=== PATIENT | female | born 1980 | race Caucasian/White ===

== ENCOUNTER 2016-08-29 14:23 | Emergency (ER) | payer BC ==
--- NOTE | 2016-08-29 14:32 | ER Document Report ---
Addendum entered and electronically signed by URMILA CESAR NP 15:49: Doctor's Note Notes: 08/29/16 15:48 35-year-old female presented to ED for evaluation for depression. States she had a child recently and for the last week she has been depressed. She states she has been having suicidal thoughts stating she could kill herself with a gun that she has at home. Original Note: ED Medical Screen (RME) - General Chief Complaint: Depression Stated Complaint: POSSIBLE DEPRESSION Time seen by provider: 14:31 Mode of Arrival: Ambulatory Information source: Patient Notes: 35-year-old female presents to ED for evaluation for depression. Verbalized results of suicide states like a gun states she has a gun at home. Denies ever having thoughts of suicide before I have greeted and performed a rapid initial assessment of this patient. A comprehensive ED assessment and evaluation of the patient, analysis of test results and completion of medical decision making process will be conducted by an additional ED providers. TRAVEL OUTSIDE OF THE [place] IN LAST 30 DAYS: No - Related Data Allergies/Adverse Reactions: ethinyl estradiol [From Microgestin Fe 1.530 (28)] Allergy (Verified 07/28/16 04:20) ferrous fumarate [From Microgestin Fe 1.530 (28)] Allergy (Verified 07/28/16 04 :20) norethindrone acetate [From Microgestin Fe 1.530 (28)] Allergy (Verified 04:20) HYDROCUDONE Allergy (Uncoded 07/21/16 15:00) CAUSES SKIN TO STING, TREMORS Past Medical History Renal/ Medical History: Denies: Hx Kidney Stones
[2016-08-29 15:28] LABS: ABSOLUTE EOSINOPHILS # (AUTO) 0.1 10^3/uL (0.0-0.6); ABSOLUTE LYMPHOCYTES (AUTO) 1.6 10^3/uL (0.5-4.7); ABSOLUTE MONOCYTES (AUTO) 0.4 10^3/uL (0.1-1.4); ABSOLUTE NEUT (AUTO) 5.7 10^3/uL (1.7-8.2); BASOPHILS % (AUTO) 0.5 % (0-2); EOSINOPHILS % (AUTO) 0.9 % (0-6); HEMATOCRIT 44.9 % (36.0-47.0); HEMOGLOBIN 14.7 g/dL (12.0-15.5); HGB HCT DIFFERENCE -0.8; LYMPHOCYTES % (AUTO) 20.2 % (13-45); MEAN CORPUSCULAR HEMOGLOBIN 29.7 pg (27.0-33.4); MEAN CORPUSCULAR HGB CONC 32.8 g/dL (32.0-36.0); MEAN CORPUSCULAR VOLUME 91 fl (80-97); MONOCYTES % (AUTO) 4.5 % (3-13); RED BLOOD COUNT 4.95 10^6/uL (3.72-5.28); RED CELL DISTRIBUTION WIDTH 13.2 % (11.5-14.0); SEGMENTED NEUTROPHILS % (AUTO) 73.9 % (42-78); WHITE BLOOD COUNT 7.8 10^3/uL (4.0-10.5)
[2016-08-29 15:36] LABS: APPEARANCE,URINE CLEAR; BILIRUBIN,URINE NEGATIVE (NEGATIVE); GLUCOSE, URINE NEGATIVE (NEGATIVE); KETONES,URINE NEGATIVE (NEGATIVE); LEUKOCYTE ESTERASE,URINE NEGATIVE (NEGATIVE); NITRITE,URINE NEGATIVE (NEGATIVE); PROTEIN,URINE NEGATIVE (NEGATIVE); URINE SPECIFIC GRAVITY 1.012; UROBILINOGEN,URINE NEGATIVE mg/dL (<2.0)
--- NOTE | 2016-08-29 15:44 | ER Document Report ---
ED Psych Disorder / Suicide <DAVIDE HYLTON - Last Filed: 08/29/16 16:29> - General Mode of Arrival: Ambulatory Information source: Patient TRAVEL OUTSIDE OF THE [place] IN LAST 30 DAYS: No - HPI Patient complains to provider of: Suicidal ideation Onset: Other - see narrative Suicide Risk Factors: Depressed, Frightened friends/family Situational problems related to: Other - Recent Normal mood: No Associated symptoms: Depressed <CARLIN LIZAMA - Last Filed: 08/29/16 16:56> - General Chief Complaint: Psych Problem Stated Complaint: POSSIBLE DEPRESSION Notes: Patient is a 35-year-old female that presents to the emergency department today with complaints of suicidal ideation. Patient states that she gave on July 28 via and has had difficulty sleeping since then. Patient also adds that for the last week she has been having post depression with suicidal ideation. The patient's VICE CHAIRMAN calledd to report that the patient scored very high on the depressive scale and was started on Zoloft 3 days ago. Patient in triage endorsed suicidal ideation and mentioned that she had a gun at home. (CARLIN LIZAMA) - Related Data Allergies/Adverse Reactions: ethinyl estradiol [From Microgestin Fe 1.5/30 (28)] Allergy (Verified 08/29/16 14:34) ferrous fumarate [From Microgestin Fe 1.5/30 (28)] Allergy (Verified 08/29/16 14 :34) norethindrone acetate [From Microgestin Fe 1.5/30 (28)] Allergy (Verified 14:34) HYDROCUDONE Allergy (Uncoded 08/29/16 14:34) CAUSES SKIN TO STING, TREMORS Past Medical History - General Information source: Patient - Social History Smoking Status: Never Smoker Cigarette use (# per day): No Chew tobacco use (# tins/day): No Frequency of alcohol use: Rare Drug Abuse: None Lives with: Family Family History: Reviewed & Not Pertinent Patient has suicidal ideation: Yes Patient has homicidal ideation: No - Medical History Medical History: Negative Surgical Hx: Negative <CARLIN LIZMAA - Last Filed: 08/29/16 16:56> Review of Systems - Review of Systems Constitutional: No symptoms reported EENT: No symptoms reported Cardiovascular: No symptoms reported Respiratory: No symptoms reported Gastrointestinal: No symptoms reported Genitourinary: No symptoms reported Female Genitourinary: No symptoms reported Musculoskeletal: No symptoms reported Skin: No symptoms reported Hematologic/Lymphatic: No symptoms reported Neurological/Psychological: See HPI, Depression, Suicidal ideation -: Yes All other systems reviewed and negative <CARLIN LIZAMA - Last Filed: 08/29/16 16:56> Physical Exam - General General appearance: Alert In distress: None - HEENT Head: Normocephalic, Atraumatic Eyes: Normal Conjunctiva: Normal - Respiratory Respiratory status: No respiratory distress - Cardiovascular Rhythm: Regular, Irregularly irregular Heart sounds: Normal auscultation Murmur: No - Abdominal Inspection: Normal Distension: No distension - Extremities General upper extremity: Normal inspection, Nontender, Normal ROM. No: Edema General lower extremity: Normal inspection, Nontender, Normal ROM. No: Edema - Neurological Neuro grossly intact: Yes Cognition: Normal Orientation: AAOx4 Speech: Normal - Psychological Associated symptoms: Depressed, Other - endorses suicidal ideation - Skin Skin Temperature: Warm Skin Moisture: Dry Skin Color: Normal <CARLIN LIZAMA - Last Filed: 08/29/16 16:56> - Vital signs Vitals: Temp Pulse Resp BP Pulse Ox 97.9 F 95 18 138/85 H 96 08/29/16 14:29 08/29/16 14:29 08/29/16 14:29 08/29/16 14:29 08/29/16 14:29 (DAVIDE HYLTON) (CARLIN LIZAMA) Course - Laboratory Result Diagrams: 08/29/16 15:00 08/29/16 15:00 - EKG Interpretation by Ar EKG shows normal: Sinus rhythm, [place], Intervals, QRS Complexes, ST-T Waves Rate: Normal - 88 Rhythm: NSR <DAVIDE HYLTON - Last Filed: 08/29/16 16:29> - Laboratory Result Diagrams: 08/29/16 15:00 08/29/16 15:00 <CARLIN LIZAMA - Last Filed: 08/29/16 16:56> - Vital Signs Vital signs: Temp Pulse Resp BP Pulse Ox 97.9 F 95 18 138/85 H 96 08/29/16 14:29 08/29/16 14:29 08/29/16 14:29 08/29/16 14:29 08/29/16 14:29 (DAVIDE HYLTON) (CARLIN LIZAMA) - Laboratory Laboratory results interpreted by me: 08/29/16 15:00 Albumin 5.1 H Salicylates < 1.0 L Acetaminophen < 10 L (DAVIDE HYLTON) Discharge <DAVIDE HYLTON - Last Filed: 08/29/16 16:29> <CARLIN LIZAMA - Last Filed: 08/29/16 16:56> - Discharge Clinical Impression: depression, Suicidal ideation Condition: Stable Disposition: PSYCH HOSP/UNIT Scribe Documentation - Scribe Written by Scribe:: Erik España, [id number] 08/29/16 acting as scribe for :: Huang <CARLIN LIZAMA - Last Filed: 08/29/16 16:56>
[2016-08-29 15:49] LABS: ALANINE AMINOTRANSFERASE 29 U/L (9-52); ALBUMIN 5.1 g/dL (3.5-5.0); ALKALINE PHOSPHATASE 71 U/L (38-126); ANION GAP 14 (5-19); ASPARTATE AMINO TRANSFERASE 19 U/L (14-36); BILIRUBIN,TOTAL 0.6 mg/dL (0.2-1.3); BLOOD UREA NITROGEN 12 mg/dL (7-20); CALCIUM 10.1 mg/dL (8.4-10.2); CARBON DIOXIDE 25 mmol/L (22-30); CHLORIDE 102 mmol/L (98-107); CREATININE RESULT 0.95 mg/dL (0.52-1.25); GLUCOSE 101 mg/dL (75-110); POTASSIUM 4.6 mmol/L (3.6-5.0); TOTAL PROTEIN 7.9 g/dL (6.3-8.2)
[2016-08-29 15:58] LABS: ALCOHOL < 10 mg/dL (NONE DETECTED); URINE BARBITURATES SCREEN NEGATIVE; URINE METHADONE SCREEN NEGATIVE; URINE PHENCYCLIDINE SCREEN NEGATIVE
[2016-08-29] MEDS ORDERED: QUETIAPINE FUMARATE 25 MG TABLET PO ONE (17:36)
[2016-08-29] MEDS ORDERED: LORAZEPAM 1 MG TABLET PO ONE (17:37)
--- NOTE | 2016-08-29 18:06 | PSYCHOLOGICAL NOTE ---
Psych Note - Psych Note Psych Note: Patient is a 35 year old female who presents with the complaints of inability to sleep, excessive anxiety and worry. [employer] states she delivered her infant son Jul 28, and since then she has been home she struggles to engage with the baby, feels empty and as though there is "water on my brain," and has had thoughts of hurting herself. Patient reports she followed up with her NUTRITION ASSOCIATE Monday and was given a prescription for Zoloft, which she states she started same day. Patient denies any history of mental illness, specifically depression or anxiety. Patient states she constantly worries about her ability to return to work, health insurance, finances, etc. Patient states at her son's fist follow up appointment, he had not gained back his weight, and she stopped breast feeding out of concerns for adequate milk supply. Discussed with patient her thoughts of wanting to harm herself and or her baby. Patient acknowledged that she had thoughts of killing herself, but denied specific plan stating the thought just randomly popped into her mind late last week. Patient answered, "not really" when asked if she had thoughts about hurting her baby. Note, during triage, patient reported she had thoughts of shooting herself with a gun she had at her home. Ke's aunt is bedside and states last week when the patient disclosed to her how she was struggling, she offered for the family to temporarily move in so she could get rest and she (aunt) would care for the baby. Aunt reports Monday, the pharmacist suggested Zquil, which she took and did sleep about 6 hours. Aunt states the patient perseverates on things, and is just so focused on not sleeping, that she's not managing her daily activities and responsibilities. Patient Hari&O. Mood is anxious with odd affect. Patient endorsed suicidal ideations, and during triage endorsed plan and means. Patient denied A/V H; delusions not noted. Thought processes were guarded. Conversational speech was WNL for rate, tone, and prosody. Intellectual abilities were estimated within average range. Attention and focus were poor. Insight and impulse control were poor; judgment fair. 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 If the patient attempts to leave she should be petitioned for IVC as she has access to a gun with the plan to potentially shoot herself. Note, patient reported she did not want to shoot herself, which is why she is voluntarily seeking help. Patient will be reevaluated in the morning for further disposition and recommendations. I have consulted with Dr. German in regards to the care and management of this patient. ED MD is in agreement with disposition and recommendations.
--- NOTE | 2016-08-29 19:00 | EKG REPORT ---
SEVERITY:- NORMAL ECG - SINUS RHYTHM : Confirmed by: Kami Rodriguez 29-Aug-2016 19:00:06
[2016-08-30] MEDS: LORAZEPAM 0.5 MG TABLET PO PRN ×3 (01:04→12:28)
[2016-08-30] MEDS: QUETIAPINE FUMARATE 25 MG TABLET PO PRN ×2 (01:04→06:28)
[2016-08-30] MEDS ORDERED: SERTRALINE HCL 50 MG TABLET PO SCH (10:00)
--- NOTE | 2016-08-30 10:06 | ER Document Report ---
Doctor's Note Notes: 08/30/16 10:04 Rounds: Chart reviewed and patient interviewed. Patient says she feels much better now that she got a good night sleep. Does not feel as if she will harm herself or her baby. Vital signs are all normal. Lab studies on admission were all normal. Patient is on Zoloft and Seroquel. Patient appears to be medically stable for transfer or discharge. Mental health has assessed the patient and feels that she can be discharged to continue with the Zoloft and Seroquel. has supposedly removing guns from the household. There is a support system for the patient as an outpatient. Robert Milligan M.D.
--- NOTE | 2016-08-30 10:22 | PSYCHOLOGICAL NOTE ---
Psych Note - Psych Note Psych Note: Conducted check in with patient who is a 35 year old female voluntarily seeking assistance for anxiety, depression, and SI who is 3-4 weeks . Patient today states she is feeling better. Patient reports she slept, and she is not feeling anxious or depressed. Patient specifically denies wanting to harm herself or anyone else. Patient states she and her , who is bedside , have talked and agree that they will return to their own home with the baby today, with taking the rest of the week off. Additionally, patient's mother and grandmother will stay at their home PRN to assist with patient and the baby. Discussed with patient the importance of self care and reaching out for help when she feels depressed and or anxious. Discussed with patient the importance of following up with her provider, as well as engaging in counseling. Patient's is bedside and reports he is not concerned for the safety of the patient or their baby. states he will return home and lock away their hunting riffles, and remove the remaining guns from the home placing them at patient's uncle's home. reports there is 1 gama to the gun cabinet and he will either hide this or keep it on his person. Provided with psychoeducation regarding warning signs and symptoms in regards to the need for additional intervention and treatment. Patient is A&O. Mood is euthymic with normal, smiling affect. Patient denies suicidal/homicidal ideations, intent, plan, or means. Patient denies A/V H; delusions not noted. Thought processes were organized. Conversational speech was WNL for rate, tone, and prosody. Intellectual abilities were estimated within average range. Attention and focus were fair. Insight, judgment, and impulse control were fair. 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 Patient denies current SI/HI. Precautionary measures have been identified to provide additional support, to include: -Patient's mother/grandmother will stay in the home with patient, and baby - has taken off of work for the remainder of the week -all guns/weapons have either been removed or locked away - will oversee medications via a lock box, only providing patient with doses as they are due (note this is to avoid any confusion) -patient will continue medication regimen -encouraged patient to journal daily to self monitor -patient will communicate her needs I have consulted with Dr. German in regards to the care and management of this patient. ED MD is in agreement with disposition and recommendations. Additionally, care was coordinated via Dr. Mcelroy's nurse at [facility], and patient will f/o Monday the at 1530. OBGYN made aware of medications administered and plan of care.
[2016-08-30 13:03] VITALS: BP 133/96
== END 2016-08-30 13:05 | disposition home or self-care (01) ==
LOC: ER 14:23
DX: F53 Mental and behavioral disorders associated with the puerperium, not elsewhere classified (principal); F06.34 Mood disorder due to known physiological condition with mixed features; R45.851 Suicidal ideations
CPT/HCPCS: 36415; 80053; 80307; 81001; 84703; 85025; 93005; 93010; 99285

== ENCOUNTER → 2016-09-14 | Outpatient (CLI) | payer BC ==
[2016-09-14 10:03] LABS: ALANINE AMINOTRANSFERASE 44 U/L (9-52); ALBUMIN 4.3 g/dL (3.5-5.0); ALKALINE PHOSPHATASE 62 U/L (38-126); ANION GAP 13 (5-19); ASPARTATE AMINO TRANSFERASE 21 U/L (14-36); BILIRUBIN,TOTAL 0.8 mg/dL (0.2-1.3); BLOOD UREA NITROGEN 18 mg/dL (7-20); CALCIUM 9.4 mg/dL (8.4-10.2); CARBON DIOXIDE 26 mmol/L (22-30); CHLORIDE 106 mmol/L (98-107); CHOLESTEROL 187.92 mg/dL (0-200); CREATININE RESULT 0.81 mg/dL (0.52-1.25); Direct HDL 57 mg/dL (>40); GLUCOSE 91 mg/dL (75-110); POTASSIUM 4.6 mmol/L (3.6-5.0); SODIUM 144.8 mmol/L (137-145); TOTAL PROTEIN 7.4 g/dL (6.3-8.2); TRIGLYCERIDES 87 mg/dL (<150)
[2016-09-14 10:14] LABS: DIRECT LDL 104 mg/dL (<100)
== END ==
LOC: OD 09:12
PROVIDERS: ATTEND Psychiatry & Neurology Psychiatry
DX: F32.2 Major depressive disorder, single episode, severe without psychotic features (principal); Z79.899 Other long term (current) drug therapy
CPT/HCPCS: 36415; 80053; 80061; 83036

== ENCOUNTER 2018-05-18 10:32 | Outpatient (CLI) | payer BC, MEDICAID ==
--- NOTE | 2018-05-18 11:11 | Non Stress Test Report ---
Non Stress Test Datetime Report Generated by CPN: 05/18/2018 11:11 DEMOGRAPHIC EGA NST: 35.5 INDICATION Indication for Study: Ordered by Provider VITAL SIGNS Temperature - NST: 98.6 RESP - NST: 16 MONITORING Monitor Explained: Monitor Explained; Test Explained; Patient Verbalized Understanding Time on Monitor: 05/18/2018 10:42 Time off Monitor: 05/18/2018 11:11 NST Duration: 29 NST INTERVENTIONS NST Interventions: PO Hydration Physician Notified NST: N. Meadows CNM BABY A: [id number] BABY A Movement : Present Contraction Frequency : irritability FHR Baseline : 130 Accelerations : 15X15 Decelerations : None Variability : Moderate 6-25bpm NST Review: Meets Criteria for Reactive NST NST Review and Verified By : Marlene Garcia RN NST Results: Reactive NST REPORT Report Trigger: Send Report
== END 2018-05-18 11:13 | disposition home or self-care (01) ==
LOC: LC 10:32
PROVIDERS: ATTEND Student in an Organized Health Care Education/Training Program
PROC: 4A1HXCZ Monitoring of Products of Conception, Cardiac Rate, External Approach (ICD-10-PCS; principal; 2018-05-18)
DX: O09.523 Supervision of elderly multigravida, third trimester (principal); Z3A.35 35 weeks gestation of pregnancy
CPT/HCPCS: 59025

== ENCOUNTER 2018-06-11 05:11 | Inpatient (IN) | payer BC, MEDICAID ==
[2018-06-08 11:37] LABS: APPEARANCE,URINE CLOUDY; BILIRUBIN,URINE NEGATIVE (NEGATIVE); COLOR,URINE YELLOW; GLUCOSE, URINE NEGATIVE (NEGATIVE); KETONES,URINE NEGATIVE (NEGATIVE); LEUKOCYTE ESTERASE,URINE LARGE (NEGATIVE); NITRITE,URINE NEGATIVE (NEGATIVE); PROTEIN,URINE NEGATIVE (NEGATIVE); URINE SPECIFIC GRAVITY 1.026; UROBILINOGEN,URINE NEGATIVE mg/dL (<2.0)
[2018-06-08 11:43] LABS: ABSOLUTE EOSINOPHILS # (AUTO) 0.1 10^3/uL (0.0-0.6); ABSOLUTE LYMPHOCYTES (AUTO) 1.3 10^3/uL (0.5-4.7); ABSOLUTE MONOCYTES (AUTO) 0.4 10^3/uL (0.1-1.4); ABSOLUTE NEUT (AUTO) 5.8 10^3/uL (1.7-8.2); BASOPHILS % (AUTO) 0.3 % (0-2); EOSINOPHILS % (AUTO) 0.9 % (0-6); HEMATOCRIT 36.3 % (36.0-47.0); HEMOGLOBIN 12.5 g/dL (12.0-15.5); LYMPHOCYTES % (AUTO) 16.8 % (13-45); MEAN CORPUSCULAR HEMOGLOBIN 30.7 pg (27.0-33.4); MEAN CORPUSCULAR HGB CONC 34.5 g/dL (32.0-36.0); MEAN CORPUSCULAR VOLUME 89 fl (80-97); MONOCYTES % (AUTO) 4.8 % (3-13); PLATELET COUNT 139 10^3/uL (150-450); RED BLOOD COUNT 4.07 10^6/uL (3.72-5.28); RED CELL DISTRIBUTION WIDTH 14.2 % (11.5-14.0); SEGMENTED NEUTROPHILS % (AUTO) 77.2 % (42-78); TOTAL CELLS COUNTED % (AUTO) 100 %; WHITE BLOOD COUNT 7.5 10^3/uL (4.0-10.5)
[2018-06-08 11:50] LABS: URINE AMPHETAMINES SCREEN NEGATIVE; URINE BARBITURATES SCREEN NEGATIVE; URINE BENZODIAZEPINES SCREEN NEGATIVE; URINE COCAINE SCREEN NEGATIVE; URINE MARIJUANA (THC) SCREEN NEGATIVE; URINE METHADONE SCREEN NEGATIVE; URINE PHENCYCLIDINE SCREEN NEGATIVE
[~2018-06-11 05:11] MED LIST: CEFAZOLIN 2 GM/D5W RTU 2 GM/50 ML RTUPB IV PRN; RINGERS SOLUTION,LACTATED 1,000 ML IV ONE; RINGERS SOLUTION,LACTATED 1,000 ML IV PRN
[2018-06-11] MEDS ORDERED: OXYTOCIN 10 UNIT/ML VIAL ONE (07:32)
[2018-06-11] MEDS ORDERED: BUPIVACAINE HCL/DEX-WATER/PF 15 MG/2 ML AMPULE ONE (07:32)
[2018-06-11] MEDS ORDERED: MIDAZOLAM 2 MG/2 ML INJ ONE (07:32)
[2018-06-11] MEDS ORDERED: FENTANYL CITRATE INJ/PF 100 MCG/2 ML AMPUL ONE (07:32)
[2018-06-11] MEDS ORDERED: EPHEDRINE SULFATE INJ 50 MG/1 ML AMPULE ONE (07:32)
[2018-06-11] MEDS ORDERED: ONDANSETRON HCL INJ/PF 4 MG/2 ML SDV IV PRN (10:05)
[2018-06-11] MEDS ORDERED: DIPHENHYDRAMINE HCL 50 MG/ML VIAL IV PRN (10:05)
[2018-06-11] MEDS ORDERED: FENTANYL CITRATE INJ/PF 100 MCG/2 ML AMPUL IV PRN ×3 (10:05)
[2018-06-11] MEDS ORDERED: MORPHINE SULFATE 10 MG/ML INJ IV PRN (10:05)
[2018-06-11] MEDS ORDERED: PROMETHAZINE HCL INJ 25 MG/1 ML VIAL IV PRN ×3 (10:05→11:20)
[2018-06-11] MEDS ORDERED: MEPERIDINE HCL/PF INJ 25 MG/1 ML DISP.SYRIN IV PRN (10:05)
[2018-06-11] MEDS ORDERED: ACETAMINOPHEN 1,000 MG/100 ML RTUPB IV ONE (11:19)
[2018-06-11] MEDS ORDERED: SIMETHICONE 80 MG TAB.CHEW PO PRN (11:20)
[2018-06-11] MEDS ORDERED: ACETAMINOPHEN 325 MG TABLET PO PRN (11:20)
[2018-06-11] MEDS ORDERED: HYDROMORPHONE HCL INJ/PF 2 MG/ML AMPULE IV PRN (11:20)
[2018-06-11] MEDS ORDERED: RINGERS SOLUTION,LACTATED 1,000 ML IV PRN (11:20)
[2018-06-11] MEDS ORDERED: ACETAMINOPHEN 1,000 MG/100 ML RTUPB IV PRN (11:20)
[2018-06-11] MEDS ORDERED: DIPH/PERTUSS(ACELL)/TETANUS VAC/PF 0.5 ML SYR (>=10YO) IM PRN (11:20)
[2018-06-11] MEDS ORDERED: OXYTOCIN/NORMAL SALINE 20 UNIT/1,000 ML RTUINJ IV PRN (11:20)
[2018-06-11] MEDS ORDERED: OXYCODONE-ACETAMINOPHEN 5-325 MG TABLET PO PRN (11:20)
[2018-06-11] MEDS ORDERED: MEASLES,MUMPS&RUBELLA VACC/PF 0.5 ML VIAL SUBCUT PRN (11:20)
--- NOTE | 2018-06-11 11:30 | Operative Report ---
Operative Report DATE OF SURGERY: 06/11/18 PREOPERATIVE DIAGNOSIS: Repeat section, History of section for breech, 39+1, , Breech presentation POSTOPERATIVE DIAGNOSIS: AMANDA - keloid scar, delivered OPERATION: Repeat section with Scar revision SURGEON: ABDI ZEPEDA ANESTHESIA: Spinal TISSUE REMOVED OR ALTERED: placenta not sent to pathology COMPLICATIONS: None ESTIMATED BLOOD LOSS: 554ml INTRAOPERATIVE FINDINGS: VFI delivered at 1029 on 06/11/2018, Apgars 9/9, weight 7#13oz, 3545g, Normal uterus, normal tubes/normal ovaries. no evidence of uterine anomaly or septum that would contribute to breech presentation with both G1 and G2, IVF 2500ml, Uop 225ml PROCEDURE: Anesthesia provider: [Tripp Lara MD, Esteban Romo CRNA] Urine output: [225ml] IV fluids: [2500ml] Indications: [37yo at 39+1ega presents for scheduled section due to history of section and breech presentation. She had desired TOLAC if converts to breech prior to scheduled section. She declines ECV. Ultrasound done on admission with persistent breech presentation and patient declines ECV and desires repeat section. The risks, benefits, alternatives were reviewed and she desires to proceed with planned section. She is undecided regarding contraception.] Procedure: The patient was taken to the operating room where spinal anesthesia was obtained and found to be adequate. She was then prepped and draped in the normal sterile fashion and placed in the dorsal supine position with a leftward tilt. A Pfannenstiel skin incision was then made and carried through to the underlying layers of the fascia with the scalpel. The fascia was incised in the midline and the incision extended laterally with the Braswell scissors. The superior aspect of the fascial incision was then grasped with Renita clamps elevated and the underlying rectus muscles dissected off [bluntly]. Attention was then turned to the inferior aspect of the fascial incision which in a similar fashion was grasped, tented up with Renita clamps, and the rectus muscles dissected off [bluntly]. The rectus muscles were then in the midline and the peritoneum at the amount identified and entered [bluntly]. The peritoneal incision was then extended superiorly and inferiorly with good visualization of the bladder. The bladder blade was inserted and the vesicouterine peritoneum identified grasped with Sudanese pickups and entered sharply with the Metzenbaum scissors. This incision was then extended laterally with the Metzenbaum scissors and a bladder flap created digitally. The bladder blade was then reinserted and the lower uterine segment incised in a transverse fashion with the scalpel. The uterine incision was then extended bluntly. The bladder blade was removed and the infant's was delivered from mari breech presentation atraumatically. The nose and mouth were suctioned and the cord doubly clamped and cut. And the was handed off to waiting pediatricians. The placenta was then delivered spontaneously and the uterus exteriorized and cleared of all clots and debris. The uterine incision was then repaired with 1- 0 Vicryl in a running locked fashion. A second layer of the same suture was used to obtain hemostasis via imbrication of the initial layer. The bladder flap was then repaired with 3-0 chromic in a running fashion. The uterus was returned to the patient's abdomen and Interceed was placed overlying the uterine incision to prevent adhesions. The gutters were cleared of all clots and debris. All operative sites were noted to be hemostatic. The fascia was reapproximated with 0 Vicryl in a running fashion from each lateral edge to the midline. The skin was closed with 3-0 Monocryl in a running subcuticular fashion with overlying Dermabond for additional dressing as well as wound closure. The patient tolerated the procedure well. Sponge lap needle and instrument counts are correct times 2. 2 g of Ancef were given prior to skin incision. The patient was taken to the recovery area awake and in stable condition.
--- NOTE | 2018-06-11 11:30 | Brief Operative Note ---
BRIEF OPERATIVE REPORT DATE OF SURGERY: 06/11/18 TIME OF SURGERY: 09:00 PREOPERATIVE DIAGNOSIS: Repeat section, History of section for breech, 39+1, POSTOPERATIVE DIAGNOSIS: AMANDA - keloid scar, delivered SURGEON: ABDI ZEPEDA FINDINGS: VFI delivered at 1029 on 06/11/2018, Apgars 9/9, weight 7#13oz, 3545g, Normal uterus, normal tubes/normal ovaries. no evidence of uterine anomaly or septum that would contribute to breech presentation with both G1 and G2, IVF 2500ml, Uop 225ml COMPLICATIONS: none ESTIMATED BLOOD LOSS: 554ml TISSUE REMOVED OR ALTERED: placenta not sent to pathology TECHNICAL PROCEDURE: Repeat section with Scar revision
--- NOTE | 2018-06-11 11:32 | PDOC DELIVERY SUMMARY ---
Delivery Summary - Maternal Hx : II Hx Para: I Hx # Term Pregnancies: 1 Hx # Pregnancies: 0 Hx Total # of Abortions (Sponateous & Elective): 0 Number of Living Children: 1 JERMAINE: 06/17/18 Gestational Age: 39+1 Risk Factors: Previous , Other - breech Ruptured Membranes: AROM Fluids: Clear - Delivery Labor: Not In Labor Presentation: Breech Heart Rate Monitoring: Done Pre-Operatively Uterine Contraction Monitoring: External Support Person Present: Yes Location: OR : Scheduled Placenta: Within Normal Limits Placenta Description: normal Number of Vessels (Cord): 3 Delivery of Placenta Date: 06/11/18 Delivery of Placenta Time: 10:30 Delivery Quantitative Blood Loss (QBL): 554 - Medications Type of Anesthesia:: Spinal - Infant Assess and Care Baby 1 Female Delivery of Infant Date: 06/11/18 Delivery of Infant Time: 10:29 at 1 minute: 9 at 5 minutes: 9 Preprinted Number On Band: [id number] Infant Skin to Skin: Yes Skin to Skin (Mins): 11 To Nursery At: 10:48 Mode of Transport: Bassinet Infant Delivery Weight: 3,545 Delivery Length: 19.5 in - Delivery Personnel Sql Database Developer: DERICK OSCAR Nursery RN: LINDSAY SNELL RN: NBA GALLARDO RN: ALDA SHAH MD: ABDI ZEPEDA
[2018-06-11] MEDS: FENTANYL CITRATE INJ/PF 100 MCG/2 ML AMPUL ONE ×2 (12:40→12:45)
[2018-06-11] MEDS: KETOROLAC TROMETHAMINE INJ/PF 30 MG/1 ML SDV IV SCH ×2 (14:13→21:10)
[2018-06-11] MEDS: OXYCODONE-ACETAMINOPHEN 5-325 MG TABLET PO PRN ×3 (14:20→23:17)
[2018-06-11] MEDS ORDERED: ONDANSETRON HCL INJ/PF 4 MG/2 ML SDV ONE (14:22)
[2018-06-11] MEDS ORDERED: METOCLOPRAMIDE HCL INJ/PF 10 MG/2 ML SDV ONE (14:22)
[2018-06-11] MEDS ORDERED: DEXAMETHASONE SOD PHOSPHATE INJ 4 MG/1 ML VIAL ONE (14:22)
[2018-06-11] MEDS ORDERED: KETOROLAC TROMETHAMINE 60 MG/2 ML SDV ONE (14:22)
[2018-06-11] MEDS: DOCUSATE SODIUM 100 MG CAPSULE PO SCH (17:19)
[2018-06-12] MEDS: KETOROLAC TROMETHAMINE INJ/PF 30 MG/1 ML SDV IV SCH (05:06)
[2018-06-12 06:14] LABS: HEMATOCRIT 33.4 % (36.0-47.0); MEAN CORPUSCULAR HEMOGLOBIN 31.6 pg (27.0-33.4); MEAN CORPUSCULAR HGB CONC 35.8 g/dL (32.0-36.0); MEAN CORPUSCULAR VOLUME 88 fl (80-97); PLATELET COUNT 137 10^3/uL (150-450); RED BLOOD COUNT 3.79 10^6/uL (3.72-5.28); RED CELL DISTRIBUTION WIDTH 14.4 % (11.5-14.0)
[2018-06-12] MEDS: OXYCODONE-ACETAMINOPHEN 5-325 MG TABLET PO PRN ×3 (08:28→22:00)
[2018-06-12] MEDS: DOCUSATE SODIUM 100 MG CAPSULE PO SCH ×2 (09:44→17:48)
[2018-06-12] MEDS: PRENATAL VITAMIN W DHA CAPSULE PO SCH (09:44)
[2018-06-12] MEDS: IBUPROFEN 800 MG TABLET PO SCH ×3 (11:53→23:19)
--- NOTE | 2018-06-12 17:24 | PDOC PROGRESS REPORT ---
Subjective-OB Progress Note for:: 06/12/18 Subjective: 89yo G2 now P2 s/p repeat ppd1. Pt ambulating, voiding and without difficulty. Denies any concerns at this time. Physical Exam (OB) Vital Signs: Temp Pulse Resp BP Pulse Ox 98.2 F 96 16 129/70 H 97 06/12/18 15:28 06/12/18 15:28 06/12/18 15:28 06/12/18 15:28 06/12/18 15:28 Intake & Output 06/11/18 06/12/18 06/13/18 06:59 06:59 06:59 Intake Total 4990 720 Output Total 3008 Balance 1982 720 - General General Appearance: Appears well In distress: None - PIH/Pre-Eclampsia Clonus: Negative Headache: Absent Epigastric Pain: No Visual Changes: No - Dressing Removed: No Incision: Open, Well Approximated Closure Type: Surgical Glue - Lochia Lochia Amount: Small 10-25 ml Lochia Color: Rubra/Red - Abdomen Description: Soft, Round Hernia Present: No Fundal Description: Firm, Midline Fundal Height: u/u - u/2 - Respiratory Respiratory Status: No respiratory distress - Extremities Upper extremity: Normal inspection Lower extremities: Normal inspection - Psychological Associated symptoms: Normal affect, Normal mood Objective-Diagnostic Laboratory: 06/12/18 05:51 06/12/18 05:51 WBC 10.0 RBC 3.79 Hgb 12.0 Hct 33.4 L MCV 88 MCH 31.6 MCHC 35.8 RDW 14.4 H Plt Count 137 L Assessment and Plan(PN) - Assessment and Plan (1) Breech presentation delivered Is this a current diagnosis for this admission?: Yes Plan: routine pp care (2) History of delivery Is this a current diagnosis for this admission?: Yes Plan: delivered via repeat (3) delivery delivered Is this a current diagnosis for this admission?: Yes Plan: routine pp care - Time Spent with Patient Time with patient: Less than 15 minutes Medications reviewed and adjusted accordingly: Yes - Disposition Anticipated Discharge: Home Within: within 24 hours
[2018-06-13] MEDS: IBUPROFEN 800 MG TABLET PO SCH ×3 (05:39→17:30)
[2018-06-13] MEDS: OXYCODONE-ACETAMINOPHEN 5-325 MG TABLET PO PRN ×2 (09:02→13:56)
[2018-06-13] MEDS: DOCUSATE SODIUM 100 MG CAPSULE PO SCH (09:03)
[2018-06-13] MEDS: PRENATAL VITAMIN W DHA CAPSULE PO SCH (09:03)
--- NOTE | 2018-06-13 10:02 | PDOC DISCHARGE SUMMARY ---
Final Diagnosis Discharge Date: 06/13/18 - Final Diagnosis (1) delivery delivered Is this a current diagnosis for this admission?: Yes Discharge Data - Discharge Medication Prescriptions: Ibuprofen [Motrin 800 mg Tablet] 800 mg PO Q8HP PRN #90 tablet PRN Reason: Oxycodone HCl/Acetaminophen [Percocet 5-325 mg Tablet] 1 tab PO Q4HP PRN #30 tablet PRN Reason: Home Medications: Vits96/Iron Fum/Folic [ Tablet] 1 each PO DAILY 05/18/18 Ibuprofen [Motrin 800 mg Tablet] 800 mg PO Q8HP PRN #90 tablet 06/13/18 Oxycodone HCl/Acetaminophen [Percocet 5-325 mg Tablet] 1 tab PO Q4HP PRN #30 tablet 06/13/18 Procedures: NST Intrapartum Procedure(s): : Low Cervical, Transverse - Diagnosis Test Laboratory: Temp Pulse Resp BP Pulse Ox 98.3 F 104 H 17 128/83 H 96 06/13/18 07:37 06/13/18 07:37 06/13/18 07:37 06/13/18 07:37 06/13/18 08:41 06/08/18 06/08/18 06/12/18 10:05 10:28 05:51 RBC 4.07 3.79 Hgb 12.5 12.0 Hct 36.3 33.4 L Urine Opiates Screen NEGATIVE - Discharge information/Instructions Discharge Activity: Balance Activity w/Rest, Pelvic Rest, No tub bath Discharge Diet: Regular Disposition: HOME, SELF-CARE Follow [facility] with: [facility] in: 1, Weeks
[2018-06-13 11:34] VITALS: BP 135/74
== END 2018-06-13 18:00 | disposition home or self-care (01) | DRG 788 ==
LOC: 2S 05:11
PROVIDERS: ADMIT Student in an Organized Health Care Education/Training Program; ATTEND Student in an Organized Health Care Education/Training Program
PROC: 10D00Z1 Extraction of Products of Conception, Low, Open Approach (ICD-10-PCS; principal; 2018-06-11 07:45)
PROC: 3E0234Z Introduction of Serum, Toxoid and Vaccine into Muscle, Percutaneous Approach (ICD-10-PCS; 2018-06-13)
DX: O34.211 Maternal care for low transverse scar from previous cesarean delivery (principal); O99.824 Streptococcus B carrier state complicating childbirth; O32.1XX0 Maternal care for breech presentation, not applicable or unspecified; N85.8 Other specified noninflammatory disorders of uterus; Z3A.39 39 weeks gestation of pregnancy; Z37.0 Single live birth; Z23 Encounter for immunization
CPT/HCPCS: 1961; 36415; 59025; 80307; 81001; 85025; 85027; 86850; 86900; 86901; 90471; 90686; C1765; G0008; J0131; J0690; J1100; J1885; J2250; J2405; J2590; J2765; J3010; J3490; J7120